=== PATIENT | female | born 1990 | race African-American/Black ===

== ENCOUNTER 2017-09-23 21:46 | Emergency (ER) | payer SELFPAY ==
--- NOTE | 2017-09-23 21:58 | NUR ---
Patient does not want to be seen in the ER. She wanted to make an appointment with an [employer] physician and was hoping this was possible in our ER. Upon bringing the patient in for triage, she decided to go home and follow up with her [employer] in the morning. Left without being triaged.
== END 2017-09-23 22:03 | disposition left against medical advice (07) ==
LOC: ER 21:47
DX: Z53.21 Procedure and treatment not carried out due to patient leaving prior to being seen by health care provider (principal)